=== PATIENT | male | born 1930 | race Caucasian/White ===

== ENCOUNTER 2019-06-06 04:53 | Emergency (ER) | payer OTHER ==
[~2019-06-06] VITALS: Ht 193 cm; Wt 96.2 kg
[2019-06-06] MEDS ORDERED: Primidone50 MG PO (05:36)
[2019-06-06] MEDS ORDERED: ELIQUIS2.5 MG PO (05:37)
[2019-06-06] MEDS ORDERED: Ropinirole HCl1 MG PO (05:37)
[2019-06-06] MEDS ORDERED: Amiodarone HCl200 MG PO (05:38)
[2019-06-06] MEDS ORDERED: PROBIOTIC1 EAC1 PO (05:38)
[2019-06-06] MEDS ORDERED: LEVSOD100 PO (05:39)
[2019-06-06] MEDS ORDERED: CENTRUM SILVER1 EAC2 PO (05:39)
[2019-06-06 05:59] LABS: BASOPHILS ABSOLUTE AUTO 0.04 K/mm3 (0.00-0.23); BASOPHILS PERCENT AUTO 1 % (0-2); EOSINOPHILS ABSOLUTE AUTO 0.09 K/mm3 (0.00-0.68); EOSINOPHILS PERCENT AUTO 1 % (0-6); Hematocrit 37.6 % (37.0-53.0); Hemoglobin 12.6 g/dL (13.5-17.5); IMMATURE GRAN ABSOLUTE AUTO 0.03 K/mm3 (0.00-0.10); IMMATURE GRAN PERCENT AUTO 0 % (0-1); LYMPHOCYTES ABSOLUTE AUTO 0.45 K/mm3 (0.84-5.20); LYMPHOCYTES PERCENT AUTO 6 % (21-46); MONOCYTES PERCENT AUTO 8 % (4-13); Mean Corpuscular HGB 33.6 pg (26.0-34.0); Mean Corpuscular HGB Conc 33.5 g/dL (31.5-36.5); Mean Corpuscular Volume 100 fL (80-100); Mean Platelet Volume 10.3 fL (9.1-12.4); NEUTROPHILS ABSOLUTE AUTO 6.29 K/mm3 (1.96-9.15); NEUTROPHILS PERCENT AUTO 84 % (41-73); Platelet Count 128 K/mm3 (150-400); RDW Coefficient Variation 15.1 % (11.7-14.2); RDW Standard Deviation 56.3 fL (35.1-46.3); Red Blood Cell Count 3.75 M/mm3 (4.30-5.90)
[2019-06-06 06:10] LABS: Alanine Aminotransfer (ALT/SGP 35 U/L (12-78); Albumin, Blood 3.7 g/dL (3.4-5.0); Alk Phos 131 U/L (50-136); Anion Gap 5 mmol/L (6-16); Aspartate Aminotrans (AST/SGOT 36 U/L (12-37); Bilirubin, Total 1.6 mg/dL (0.1-1.0); Blood Urea Nitrogen 18 mg/dL (8-24); Bun/Creatinine Ratio 17.8 (12.0-20.0); CO2, Blood 25 mmol/L (21-32); Chloride, Blood 102 mmol/L (98-108); Creatinine, Blood 1.01 mg/dL (0.60-1.20); Globulin, Blood 3.6 g/dL (2.2-4.0); Glomerular Filtration Rate >60 (60-); Glucose, Blood 114 mg/dL (70-99); Magnesium, Blood 2.2 mg/dL (1.6-2.4); Potassium, Blood 4.5 mmol/L (3.5-5.5); Sodium, Blood 132 mmol/L (136-145); Total Protein, Blood 7.3 g/dL (6.4-8.2); Troponin I <0.015 ng/mL (0.000-0.040)
[2019-06-06 07:42] LABS: Source, Urine Clean Catch
[2019-06-06 07:47] LABS: Bilirubin, Urine Neg (Neg); Blood, Urine Neg (Neg); Glucose Qualitative, Urine Neg (Neg); Ketones, Urine Neg (Neg); Leukocyte Esterase, Urine Neg (Neg); Nitrite, Urine Neg (Neg); Protein, Urine 2+ (Neg); Urobilinogen, Urine 1+ (Normal)
[2019-06-06 07:54] LABS: Appearance, Urine Clear (Clear); Color, Urine Yellow (P-Yellow)
[2019-06-06 07:57] LABS: Bacteria Not Seen /hpf; Mucus Mod (0-Heavy); Red Blood Cells, Urine Not Seen /hpf (0-2); Renal Epithelial Rare /hpf (0-Rare); Squamous Epithelial Cells Few /hpf (Few); White Blood Cells, Urine 0-2 /hpf (0-5)
[2019-06-06] MEDS ORDERED: Prednisone20 MG PO (08:04)
== END 2019-06-06 09:00 | disposition home or self-care (01) ==
LOC: ER 04:53
PROVIDERS: Emergency Medicine
DX: R53.1 Weakness (principal); M79.10 Myalgia, unspecified site; J44.9 Chronic obstructive pulmonary disease, unspecified; I48.91 Unspecified atrial fibrillation; I27.20 Pulmonary hypertension, unspecified; Z88.0 Allergy status to penicillin; Z79.899 Other long term (current) drug therapy
CPT/HCPCS: 71046; 80053; 81001; 83735; 83880; 84484; 85025; 85651; 87086; 93005; 93010; 96374; 99284-25; J1885; J7512

== ENCOUNTER 2020-07-03 18:47 | Inpatient (IN) | payer MEDICARE, OTHER ==
[~2020-07-03] VITALS: Ht 193 cm; Wt 97.5 kg
[~2020-07-03 18:47] MED LIST: ALBU90OI INH; Amiodarone HCl200 MG PO; BUME1 PO; CENTRUM SILVER1 EAC2 PO; CYAN500 PO; ELIQUIS2.5 MG PO; ENTRESTO 24 MG1 EACH PO; EUTHYROX125 MCG PO; FERSU300 PO; FURO40 PO; FUROSEMIDE40 MG PO; IRON PO; IRON18 MG PO; Klor-Con 1010 MEQ PO; LEVSOD100 PO; METO25ER; METO5 PO; METOPROLOL SUCC25 MG PO; POTA10T PO; PROBIOTIC PO; PROBIOTIC1 EAC1 PO; Prednisone20 MG PO; Primidone50 MG PO; ROPI1 PO; Ropinirole HCl1 MG PO; SYNTHROID125 MC1 PO
[2020-07-03 19:54] LABS: BASOPHILS ABSOLUTE AUTO 0.06 K/mm3 (0.00-0.23); BASOPHILS PERCENT AUTO 1 % (0-2); EOSINOPHILS ABSOLUTE AUTO 0.02 K/mm3 (0.00-0.68); EOSINOPHILS PERCENT AUTO 0 % (0-6); Hematocrit 38.2 % (37.0-53.0); Hemoglobin 12.7 g/dL (13.5-17.5); IMMATURE GRAN ABSOLUTE AUTO 0.03 K/mm3 (0.00-0.10); IMMATURE GRAN PERCENT AUTO 0 % (0-1); LYMPHOCYTES ABSOLUTE AUTO 0.72 K/mm3 (0.84-5.20); LYMPHOCYTES PERCENT AUTO 9 % (21-46); MONOCYTES ABSOLUTE AUTO 0.81 K/mm3 (0.16-1.47); MONOCYTES PERCENT AUTO 11 % (4-13); Mean Corpuscular HGB Conc 33.2 g/dL (31.5-36.5); Mean Corpuscular Volume 105 fL (80-100); NEUTROPHILS ABSOLUTE AUTO 6.11 K/mm3 (1.96-9.15); NEUTROPHILS PERCENT AUTO 79 % (41-73); Platelet Count 122 K/mm3 (150-400); RDW Standard Deviation 54.3 fL (35.1-46.3); Red Blood Cell Count 3.63 M/mm3 (4.30-5.90); White Blood Cell Count 7.75 K/mm3 (4.00-11.30)
[2020-07-03 20:29] LABS: Alanine Aminotransfer (ALT/SGP 27 U/L (12-78); Albumin, Blood 3.8 g/dL (3.4-5.0); Albumin/Globulin Ratio 0.9 (0.8-1.8); Alk Phos 135 U/L (50-136); Anion Gap 7 mmol/L (6-16); Aspartate Aminotrans (AST/SGOT 38 U/L (12-37); Bilirubin, Total 1.3 mg/dL (0.1-1.0); Blood Urea Nitrogen 30 mg/dL (8-24); Bun/Creatinine Ratio 25.9 (12.0-20.0); CO2, Blood 26 mmol/L (21-32); Calcium, Blood 9.1 mg/dL (8.5-10.1); Chloride, Blood 102 mmol/L (98-108); Creatinine, Blood 1.16 mg/dL (0.60-1.20); Globulin, Blood 4.4 g/dL (2.2-4.0); Glomerular Filtration Rate >60 (60-); Glucose, Blood 103 mg/dL (70-99); Potassium, Blood 4.3 mmol/L (3.5-5.5); Sodium, Blood 135 mmol/L (136-145); Total Protein, Blood 8.2 g/dL (6.4-8.2); Troponin I <0.015 ng/mL (0.000-0.040)
[2020-07-04 00:52] LABS: Adenovirus Not Detected (NOT DETECT); Bordetella pertussis Not Detected (NOT DETECT); Chlamydophila pneumoniae Not Detected (NOT DETECT); Coronavirus 229E Not Detected (NOT DETECT); Coronavirus HKU1 Not Detected (NOT DETECT); Coronavirus NL63 Not Detected (NOT DETECT); Coronavirus OC43 Not Detected (NOT DETECT); Human Metapneumovirus Not Detected (NOT DETECT); Human Rhinovirus/Enterovirus Not Detected (NOT DETECT); Influenza A/2009-H1 Not Detected (NOT DETECT); Influenza A/H1 Not Detected (NOT DETECT); Influenza A/H3 Not Detected (NOT DETECT); Influenza B Not Detected (NOT DETECT); Mycoplasma pneumoniae Not Detected (NOT DETECT); Parainfluenza Virus 1 Not Detected (NOT DETECT); Parainfluenza Virus 2 Not Detected (NOT DETECT); Parainfluenza Virus 3 Not Detected (NOT DETECT); Parainfluenza Virus 4 Not Detected (NOT DETECT); Respiratory Syncytial Virus Not Detected (NOT DETECT)
--- NOTE | 2020-07-04 04:33 | NUR ---
PHYSICIAN COMMUNICATION CONTACTED THE PLANISHING PRESS OPERATOR PHYSICIAN, DR ALMONTE, TO NOTIFY HIM THAT THE PATIENT HAD A LOW BLOOD PRESSURE OF 80/54. DR ALLEN ORDERED A 500CC BOLUS.
[2020-07-04 05:02] LABS: BASOPHILS ABSOLUTE AUTO 0.04 K/mm3 (0.00-0.23); BASOPHILS PERCENT AUTO 1 % (0-2); EOSINOPHILS PERCENT AUTO 0 % (0-6); Hematocrit 35.3 % (37.0-53.0); Hemoglobin 11.4 g/dL (13.5-17.5); IMMATURE GRAN ABSOLUTE AUTO 0.03 K/mm3 (0.00-0.10); IMMATURE GRAN PERCENT AUTO 0 % (0-1); LYMPHOCYTES ABSOLUTE AUTO 0.69 K/mm3 (0.84-5.20); LYMPHOCYTES PERCENT AUTO 9 % (21-46); MONOCYTES ABSOLUTE AUTO 1.16 K/mm3 (0.16-1.47); MONOCYTES PERCENT AUTO 16 % (4-13); Mean Corpuscular HGB Conc 32.3 g/dL (31.5-36.5); Mean Corpuscular Volume 105 fL (80-100); Mean Platelet Volume 10.5 fL (9.1-12.4); NEUTROPHILS ABSOLUTE AUTO 5.39 K/mm3 (1.96-9.15); NEUTROPHILS PERCENT AUTO 74 % (41-73); Platelet Count 107 K/mm3 (150-400); RDW Coefficient Variation 14.1 % (11.7-14.2); Red Blood Cell Count 3.35 M/mm3 (4.30-5.90); White Blood Cell Count 7.31 K/mm3 (4.00-11.30)
[2020-07-04 05:30] LABS: Albumin, Blood 3.2 g/dL (3.4-5.0); Albumin/Globulin Ratio 0.8 (0.8-1.8); Bilirubin, Total 1.4 mg/dL (0.1-1.0); Calcium, Blood 8.7 mg/dL (8.5-10.1); Creatinine, Blood 1.39 mg/dL (0.60-1.20); Globulin, Blood 3.9 g/dL (2.2-4.0); Potassium, Blood 4.1 mmol/L (3.5-5.5); Total Protein, Blood 7.1 g/dL (6.4-8.2)
--- NOTE | 2020-07-04 06:32 | NUR ---
SHIFT SUMMARY PATIENT ARRIVED TO [facility] VIA STRETCHER AT 2255. PATIENT ALERT AND ORIENTED X4, BUT TIRED AND WOULD FALL ASLEEP DURING QUESTIONING. PATIENT DID NOT COMPLAIN OF CHEST PAIN OVERNIGHT. PATIENT HAD A LOW BLOOD PRESSURE OF 80/54 EARLY THIS MORNING. PHYSICIAN NOTIFIED AND ORDERS CARRIED OUT. PATIENTS BLOOD PRESSURE CAME UP TO 108/65. PATIENT IS VERY PLEASANT, AND EAGER TO DO WHAT HE NEEDS TO TO GET WELL.
--- NOTE | 2020-07-04 16:50 | NUR ---
SHIFT SUMMARY PT INFORMED THAT PT NEUROLOGIST RECOMMENDATION TO ALTER REQUIP DOSAGE. DR. BAZAN NOTIFIED & AGREED. ORDER CHANGED. TRAZADONE ADDED FOR NIGHTTIME. PT CONTINUES TO HAVE DRY NONPRODUCTIVE COUGH. BP THIS AFTERNOON AT 91/54. NS INFUSION COMPLETED. DR. BAZAN ORDERED TO CONTINUE MONITORING PT BP AT THIS TIME. NO FURTHER ORDERS TAKEN AT THIS TIME. OTHER VITALS REVIEWED & STABLE. K PAD APPLIED TO LEGS TO ASSIST WITH RESTLESSNESS WITH SUCCESS. NO OTHER CHANGES IN ASSESSMENT AT THIS TIME. WILL CONTINUE TO MONITOR UNTIL TURNOVER IS COMPLETE.
[2020-07-05 05:31] LABS: BASOPHILS ABSOLUTE AUTO 0.03 K/mm3 (0.00-0.23); BASOPHILS PERCENT AUTO 1 % (0-2); EOSINOPHILS ABSOLUTE AUTO 0.07 K/mm3 (0.00-0.68); EOSINOPHILS PERCENT AUTO 1 % (0-6); Hematocrit 32.2 % (37.0-53.0); Hemoglobin 10.5 g/dL (13.5-17.5); IMMATURE GRAN ABSOLUTE AUTO 0.03 K/mm3 (0.00-0.10); IMMATURE GRAN PERCENT AUTO 1 % (0-1); LYMPHOCYTES ABSOLUTE AUTO 0.69 K/mm3 (0.84-5.20); LYMPHOCYTES PERCENT AUTO 14 % (21-46); MONOCYTES ABSOLUTE AUTO 0.96 K/mm3 (0.16-1.47); MONOCYTES PERCENT AUTO 20 % (4-13); Mean Corpuscular HGB 34.5 pg (26.0-34.0); Mean Corpuscular HGB Conc 32.6 g/dL (31.5-36.5); Mean Corpuscular Volume 106 fL (80-100); Mean Platelet Volume 10.6 fL (9.1-12.4); NEUTROPHILS ABSOLUTE AUTO 3.08 K/mm3 (1.96-9.15); NEUTROPHILS PERCENT AUTO 63 % (41-73); Platelet Count 100 K/mm3 (150-400); RDW Coefficient Variation 14.1 % (11.7-14.2); RDW Standard Deviation 54.7 fL (35.1-46.3); Red Blood Cell Count 3.04 M/mm3 (4.30-5.90); White Blood Cell Count 4.86 K/mm3 (4.00-11.30)
[2020-07-05 05:42] LABS: Bun/Creatinine Ratio 27.7 (12.0-20.0); Calcium, Blood 8.5 mg/dL (8.5-10.1); Creatinine, Blood 1.37 mg/dL (0.60-1.20); Potassium, Blood 3.9 mmol/L (3.5-5.5)
--- NOTE | 2020-07-05 06:26 | NUR ---
PT alert cooperative with good humaor. Uses requip 2 mg oral at HS with helpful effect..PT atrial paced
[2020-07-05] MEDS ORDERED: Azithromycin500 MG PO (15:11)
[2020-07-05] MEDS ORDERED: MAXI-TUSS G LI473 ML PO (15:12)
[2020-07-05] MEDS ORDERED: CEFU500T30 PO (15:12)
[2020-07-05] MEDS ORDERED: TRAZ50 PO (15:13)
--- NOTE | 2020-07-05 16:39 | NUR ---
DISCHARGE NOTE PT DISCHARGING WITH . VITALS REVIEWED. NEW MEDICATION FAXED TO PHARMACY. PT EDUCATION ON CHF PROVIDED. FOLLOW UP APPOINTMENTS DISCUSSED. PT ADVISED TO RETURN IF SYMPTOMS WORSEN. QUESTIONS ANSWERED. OUT IN WHEELCHAIR WITH VOLUNTEER.
== END 2020-07-05 15:50 | disposition home health service (06) | DRG 194 ==
LOC: ER 18:47 → MEDS 21:46 → ER 22:52 → MEDS 22:55
PROVIDERS: Family Medicine; Physician Assistant; ADMIT Internal Medicine
DX: J18.9 Pneumonia, unspecified organism (principal); I13.0 Hypertensive heart and chronic kidney disease with heart failure and stage 1 through stage 4 chronic kidney disease, or unspecified chronic kidney disease; N17.9 Acute kidney failure, unspecified; I50.22 Chronic systolic (congestive) heart failure; E03.9 Hypothyroidism, unspecified; Z95.0 Presence of cardiac pacemaker; E86.0 Dehydration; G25.81 Restless legs syndrome; G47.33 Obstructive sleep apnea (adult) (pediatric); N18.3 Chronic kidney disease, stage 3 (moderate); I48.91 Unspecified atrial fibrillation; Z20.828 Contact with and (suspected) exposure to other viral communicable diseases
CPT/HCPCS: 0099U; 36415; 71045; 80048; 80053; 83880; 84145; 84484; 85025; 87040; 93005; 93010; 96365; 99285-25; A9270; J0456; J0696; J7030; J7040; J7050; U0002